=== PATIENT | female | born 1965 | race Caucasian/White ===

== ENCOUNTER 2018-02-04 12:56 | Outpatient (CLI) | payer BC, SELFPAY ==
--- NOTE | 2018-02-04 13:40 | DI.RAD_ITS ---
SYMPTOM/DIAGNOSIS: RT FOOT PAIN, M79.671, TWISTING INJURY RIGHT FOOT: There is a mildly displaced oblique fracture involving the distal metaphysis and shaft of the fifth metatarsal. There is no evidence of a dislocation.
== END 2018-02-04 13:16 ==
PROVIDERS: PCP Family Medicine; Visit Provider Family Medicine
DX: M79.671 Pain in right foot (principal); S92.351A Displaced fracture of fifth metatarsal bone, right foot, initial encounter for closed fracture
CPT/HCPCS: 73630

== ENCOUNTER 2018-03-16 09:26 | Outpatient (CLI) | payer BC, SELFPAY ==
--- NOTE | 2018-03-16 09:21 | DI.RAD_ITS ---
SYMPTOM/DIAGNOSIS: F/U RIGHT FOOT: Comparison is made with 02/04/18. There has been no change in the alignment of the fifth metatarsal fracture. The bones now appear osteopenic from disuse. No new abnormalities are seen.
== END 2018-03-16 09:46 ==
PROVIDERS: PCP Family Medicine; Visit Provider Physician Assistant Surgical
DX: S92.351D Displaced fracture of fifth metatarsal bone, right foot, subsequent encounter for fracture with routine healing (principal)
CPT/HCPCS: 73630

== ENCOUNTER 2021-04-25 16:47 | Outpatient (REF) | payer BC, SELFPAY ==
[2021-04-25 20:16] LABS: ALT 11 U/L (14-59); AST 10 U/L (15-37); Albumin 3.6 g/dL (3.4-5.0); Alkaline Phosphatase 63 U/L (46-116); Anion Gap 8.4 mmol/L (3-11); BUN 14 mg/dL (7-18); Bilirubin, Total 0.4 mg/dL (0.2-1.0); CO2 27.6 mmol/L (21.0-32.0); CREATININE 0.7 mg/dL (0.55-1.02); Calcium 8.9 mg/dL (8.5-10.1); Calculated LDL 118 mg/dL (<100); Chloride 103 mmol/L (98-107); Cholesterol 191 mg/dL (<200); Glucose 101 mg/dL (74-106); HDL Cholesterol 58 mg/dL (40-60); Potassium 4.2 mmol/L (3.5-5.1); Sodium 139 mmol/L (136-145); Total Protein 7.7 g/dL (6.4-8.2); Triglyceride 79 mg/dL (<150)
== END 2021-04-25 16:48 | disposition home or self-care (01) ==
LOC: NCHCN 16:47
PROVIDERS: PCP Family Medicine; Visit Provider Nurse Practitioner Family
DX: E78.70 Disorder of bile acid and cholesterol metabolism, unspecified (principal); Z00.00 Encounter for general adult medical examination without abnormal findings
CPT/HCPCS: 80053; 80061

== ENCOUNTER 2021-04-28 10:38 | Outpatient (REF) | payer BC, SELFPAY ==
--- NOTE | 2021-04-28 10:00 | PAPFT_PTH ---
PATIENT: Leigh Hough LOC: [facility] U#:[id number] AGE/SX: 56/F ROOM: RE04/28/[address]: Eloise Hooper MD : 1965 BED: DIS: 04/28/2021 SPEC #: [id number] RECD: 04/28/21 13:01 STATUS: FRANCIS RETrinidad #: [id number] RICHARD: 04/28/21 10:[address]: Eloise Hooper DEPT: [facility] Cytology RECD BY: Argelia Jose ENTERED: 04/28/21 13:02 SP TYPE: PAPFT OTHR DR: Dary Kong Tissues: 1 - CX/ENDOCX FOR PAP SMEARS Procedures: PAP THIN PREP/[facility] Screening HPV DNA PROBE Comments: [id number]
== END 2021-04-28 10:39 | disposition home or self-care (01) ==
LOC: LBN 10:38
PROVIDERS: PCP Family Medicine; Visit Provider Obstetrics & Gynecology
DX: Z12.4 Encounter for screening for malignant neoplasm of cervix (principal); Z11.51 Encounter for screening for human papillomavirus (HPV)
CPT/HCPCS: 88142; 87624

== ENCOUNTER 2021-05-22 01:09 | Outpatient (CLI) | payer BC, SELFPAY ==
--- NOTE | 2021-05-22 11:29 | DI.MAMMO_ITS ---
Exam(s) MAMMO SCREENING EXAM: MAMMO SCREENING CLINICAL HISTORY: SCREENING, Z12.39 TECHNIQUE: Mammograms were interpreted according to the usual protocol including computer analysis w [facility] CAD system, tomosynthesis and C-view imaging. COMPARISON: FINDINGS: The breasts are heterogeneously dense. No dominant mass or clumped microcalcification is identified in either breast. The current examination is compared with previous examination of January 2017 and there has been no gross interval change in appearance in comparison with the prior study. IMPRESSION: No specific evidence of malignancy at this time. Routine screening examinations are suggested at yea rly intervals in this age group according to the ACS ACR guidelines. BI-RADS Category 1 - Negative Breast Density - Category C - Heterogeneously dense
== END 2021-05-22 01:29 ==
PROVIDERS: PCP Family Medicine; Visit Provider Nurse Practitioner Family
DX: Z12.31 Encounter for screening mammogram for malignant neoplasm of breast (principal)
CPT/HCPCS: 77063; 77067

== ENCOUNTER 2025-01-19 16:40 | Outpatient (REF) | payer BC, SELFPAY ==
[2025-01-19 20:14] LABS: Hemoglobin A1C 5.7 % (<5.7)
[2025-01-19 20:18] LABS: Cholesterol 219 mg/dL (<200); HDL Cholesterol 72 mg/dL (>40)
== END 2025-01-19 16:41 | disposition home or self-care (01) ==
LOC: NCHCN 16:40
PROVIDERS: PCP Family Medicine
DX: Z01.89 Encounter for other specified special examinations (principal)
CPT/HCPCS: 80061; 83036